=== PATIENT | male | born 1955 | race Asian ===

== ENCOUNTER 2020-06-01 02:42 | Emergency (ER) | payer MEDICAID, SELFPAY ==
[~2020-06-01] VITALS: Ht 165.1 cm; Wt 72.7 kg
[2020-06-01] MEDS ORDERED: LOSA100T50 PO (03:07)
[2020-06-01] MEDS ORDERED: TRUL0.5I SC (03:07)
[2020-06-01] MEDS ORDERED: JARD1TAB PO (03:07)
[2020-06-01] MEDS ORDERED: METF500T13 PO (03:07)
--- NOTE | 2020-06-01 04:58 | REPVR ---
PROCEDURE INFORMATION: Exam: CT Head Without Contrast Exam date and time: 06/01/2020 4:38 AM Age: 64 years old Clinical indication: Dizziness TECHNIQUE: Imaging protocol: Computed tomography of the head without contrast. Radiation optimization: All CT scans at this facility use at least one of these dose optimization techniques: automated exposure control; mA and/or kV adjustment per patient size (includes targeted exams where dose is matched to clinical indication); or iterative reconstruction. COMPARISON: No relevant prior studies available. FINDINGS: Brain: Normal. No hemorrhage. Unremarkable white matter. No mass effect. Cerebral ventricles: No ventriculomegaly. Bones/joints: Unremarkable. No acute fracture. Paranasal sinuses: Visualized sinuses are unremarkable. No fluid levels. Mastoid air cells: Visualized mastoid air cells are well aerated. Soft tissues: Unremarkable. IMPRESSION: No acute intracranial abnormality. Electronically signed by: Aaron Sim On 06/01/2020 04:58:37 AM
[2020-06-01 05:00] LABS: HEMATOCRIT 44.5 % (42.0-52.0); HEMOGLOBIN 15.3 g/dl (13.5-17.5); MEAN CORPUSCULAR HEMOGLOBIN 30.6 pg (27.0-33.0); MEAN CORPUSCULAR HGB CONC 34.4 g/dl (32.0-36.5); PLATELET COUNT, AUTOMATED 196 10^3/uL (150-450)
[2020-06-01 05:18] LABS: BLOOD UREA NITROGEN 17 MG/DL (7-18); CALCIUM LEVEL 8.8 MG/DL (8.8-10.2); CARBON DIOXIDE LEVEL 26 MEQ/L (21-32); CHLORIDE LEVEL 109 MEQ/L (98-107); GLOMERULAR FILTRATION RATE > 60.0 (>49); GLUCOSE, FASTING 114 MG/DL (70-100); POTASSIUM SERUM 3.8 MEQ/L (3.5-5.1); SODIUM LEVEL 141 MEQ/L (136-145)
[2020-06-01] MEDS ORDERED: MECLIZINE 25 MG TABLET PO ONE (05:30)
[2020-06-01 06:15] VITALS: BP 153/93
[2020-06-01] MEDS ORDERED: MECL1TAB31 PO (06:21)
== END 2020-06-01 06:34 | disposition home or self-care (01) ==
LOC: M ED 02:42
DX: R42 Dizziness and giddiness (principal); E11.9 Type 2 diabetes mellitus without complications; I10 Essential (primary) hypertension; Z79.84 Long term (current) use of oral hypoglycemic drugs; Z79.899 Other long term (current) drug therapy

== ENCOUNTER → 2020-09-02 | Outpatient (REF) | payer MEDICAID ==
[~2020-09-02] MED LIST: JARD1TAB PO; LOSA100T50 PO; MECL1TAB31 PO; METF500T13 PO; TRUL0.5I SC
[2020-09-02 19:07] LABS: BASO % 0.8 % (0.0-1.0); EOS # 0.1 10^3/uL (0.0-0.5); EOS % 1.9 % (0.0-3.0); HEMATOCRIT 46.8 % (42.0-52.0); HEMOGLOBIN 15.7 g/dl (13.5-17.5); LYMPH # 1.2 10^3/uL (1.5-5.0); LYMPH % 25.7 % (24.0-44.0); MEAN CORPUSCULAR HEMOGLOBIN 30.6 pg (27.0-33.0); MEAN CORPUSCULAR HGB CONC 33.5 g/dl (32.0-36.5); MEAN CORPUSCULAR VOLUME 91.2 fl (80.0-96.0); MONO # 0.4 10^3/uL (0.0-0.8); MONO % 7.9 % (2.0-8.0); NEUTROPHILS # 3.1 10^3/uL (1.5-8.5); NEUTROPHILS % 63.3 % (36.0-66.0); PLATELET COUNT, AUTOMATED 223 10^3/uL (150-450); RED BLOOD COUNT 5.13 10^6/uL (4.30-6.10); WHITE BLOOD COUNT 4.8 10^3/uL (4.0-10.0)
[2020-09-02 19:28] LABS: HEMOGLOBIN A1c 5.5 %
[2020-09-02 19:46] LABS: ALBUMIN 4.5 GM/DL (3.2-5.2); ALT/SGPT 49 U/L (12-78); BILIRUBIN,TOTAL 0.8 MG/DL (0.2-1.0); BLOOD UREA NITROGEN 15 MG/DL (7-18); CALCIUM LEVEL 9.1 MG/DL (8.8-10.2); CARBON DIOXIDE LEVEL 30 MEQ/L (21-32); CHLORIDE LEVEL 105 MEQ/L (98-107); CHOLESTEROL LEVEL 134 MG/DL (<200); CHOLESTEROL RISK RATIO 2.161 (<5); CREATININE FOR GFR 1.09 MG/DL (0.70-1.30); GLOMERULAR FILTRATION RATE > 60.0 (>49); GLUCOSE, FASTING 98 MG/DL (70-100); HDL CHOLESTEROL 62 MG/DL (>40); LDL CHOLESTEROL 58 MG/DL (<100); NON-HDL-C 72 MG/DL; POTASSIUM SERUM 4.6 MEQ/L (3.5-5.1); PROSTATIC SPECIFIC AG MONITOR 4.11 NG/ML (< 4.00); SODIUM LEVEL 140 MEQ/L (136-145); TOTAL 25(OH) VITAMIN D 38.6 NG/ML (30.0-100.0); TOTAL PROTEIN 7.7 GM/DL (6.4-8.2); TRIGLYCERIDES LEVEL 72 MG/DL (<150)
[2020-09-02 20:09] LABS: MALB URINE SIEMENS 52.5 MG/L; MAU/CREAT RATIO 25.1 MCG/MG (0.0-30.0)
== END ==
LOC: M LAB REF 15:51
PROVIDERS: ATTEND Physician Assistant
DX: E11.9 Type 2 diabetes mellitus without complications (principal); Z12.5 Encounter for screening for malignant neoplasm of prostate

== ENCOUNTER → 2020-11-15 | Outpatient (CLI) | payer MEDICAID | LOC: M LABSMTC 09:41 | PROVIDERS: ATTEND Anesthesiology | DX: Z01.812 Encounter for preprocedural laboratory examination (principal); Z20.822 Contact with and (suspected) exposure to COVID-19 ==

== ENCOUNTER 2020-11-20 06:44 | Day surgery (SDC) | payer MEDICAID ==
[~2020-11-20] VITALS: Ht 165.1 cm; Wt 65.8 kg
[~2020-11-20 06:44] MED LIST changes: +NS 1,000 ML IV ONE
[2020-11-20] MEDS ORDERED: LIDOCAINE 2% 100MG/5ML SDV (FOR ANES.) As Ordered ONE (07:22)
[2020-11-20] MEDS ORDERED: propofoL 200 MG/20 ML VIAL As Ordered ONE ×2 (07:22→07:45)
--- NOTE | 2020-11-20 08:19 | ROOR ---
Patient Name: Ritchie Mulligan Procedure Date: 11/20/2020 7:33 AM Date of : 1955 Age: 65 Room: [facility] Gender: Male Note Status: Finalized Procedure: Colonoscopy Indications: Screening for colon cancer: Family history of colorectal cancer in distant relative(s) 60 or older Providers: Justin Ansari MD Referring MD: Justin Ansari MD Requesting Provider: Medicines: Monitored Anesthesia Care Complications: No immediate complications. Procedure: Pre-Anesthesia Assessment: - Prior to the procedure, a History and Physical was performed, and patient medications and allergies were reviewed. The patient is competent. The risks and benefits of the procedure and the sedation options and risks were discussed with the patient. All questions were answered and informed consent was obtained. Patient identification and proposed procedure were verified by the physician, the nurse and the anesthesiologist in the endoscopy suite. Mental Status Examination: alert and oriented. Airway Examination: normal oropharyngeal airway and neck mobility. Respiratory Examination: clear to auscultation. CV Examination: normal. Prophylactic Antibiotics: The patient does not require prophylactic antibiotics. Prior Anticoagulants: The patient has taken no previous anticoagulant or antiplatelet agents. ASA Grade Assessment: II - A patient with mild systemic disease. After reviewing the risks and benefits, the patient was deemed in satisfactory condition to undergo the procedure. The anesthesia plan was to use monitored anesthesia care (MAC). Immediately prior to administration of medications, the patient was re-assessed for adequacy to receive sedatives. The heart rate, respiratory rate, oxygen saturations, blood pressure, adequacy of pulmonary ventilation, and response to care were monitored throughout the procedure. The physical status of the patient was re-assessed after the procedure. The Colonoscope was introduced through the anus and advanced to the terminal ileum, with identification of the appendiceal orifice and IC valve. The colonoscopy was performed without difficulty. The patient tolerated the procedure well. The quality of the bowel preparation was excellent. Findings: The perianal and digital rectal examinations were normal. A few small-mouthed diverticula were found in the sigmoid colon, descending colon, transverse colon and ascending colon. There was no evidence of diverticular bleeding. A diminutive polyp was found in the ascending colon. The polyp was flat. The polyp was removed with a cold biopsy forceps. Resection and retrieval were complete. Estimated blood loss was minimal. Two semi-pedunculated polyps were found in the sigmoid colon. The polyps were 4 to 6 mm in size. These polyps were removed with a cold snare. Resection and retrieval were complete. To prevent bleeding after the polypectomy, two hemostatic clips were successfully placed (MR conditional). There was no bleeding at the end of the procedure. The retroflexed view of the distal rectum and anal verge was normal and showed no anal or rectal abnormalities. Impression: - Mild diverticulosis in the sigmoid colon, in the descending colon, in the transverse colon and in the ascending colon. There was no evidence of diverticular bleeding. - One diminutive polyp in the ascending colon, removed with a cold biopsy forceps. Resected and retrieved. - Two 4 to 6 mm polyps in the sigmoid colon, removed with a cold snare. Resected and retrieved. Clips (MR conditional) were placed. - The distal rectum and anal verge are normal on retroflexion view. Recommendation: - Discharge patient to home (ambulatory). - High fiber diet indefinitely. - Repeat colonoscopy in 5 years for surveillance of multiple polyps. Procedure Code(s): --- Professional --- 67609, Colonoscopy, flexible; with removal of tumor(s), polyp(s), or other lesion(s) by snare technique 61165, 59, Colonoscopy, flexible; with biopsy, single or multiple Diagnosis Code(s): --- Professional --- K63.5, Polyp of colon Z12.11, Encounter for screening for malignant neoplasm of colon Z80.0, Family history of malignant neoplasm of digestive organs K57.30, Diverticulosis of large intestine without perforation or abscess without bleeding CPT copyright 2019 [employer]. All rights reserved. 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 Justin Ansari MD Justin Ansari MD 11/20/2020 8:19:48 AM Electronically signed by Justin Ansari MD Number of Addenda: 0 Note Initiated On: 11/20/2020 7:33 AM Estimated Blood Loss: Estimated blood loss was minimal.
[2020-11-20 08:38] VITALS: BP 118/83
== END 2020-11-20 09:05 | disposition home or self-care (01) ==
LOC: M OPP 06:44
PROVIDERS: ATTEND Surgery
DX: Z12.11 Encounter for screening for malignant neoplasm of colon (principal); Z80.0 Family history of malignant neoplasm of digestive organs; K63.5 Polyp of colon; K57.30 Diverticulosis of large intestine without perforation or abscess without bleeding; Z79.84 Long term (current) use of oral hypoglycemic drugs; Z79.899 Other long term (current) drug therapy

== ENCOUNTER 2020-11-29 18:32 | Emergency (ER) | payer MEDICAID ==
[~2020-11-29] VITALS: Ht 165.1 cm; Wt 64.4 kg
[~2020-11-29 18:32] MED LIST changes: -NS 1,000 ML IV ONE
[2020-11-29] MEDS ORDERED: ROSU10TA6 PO (18:39)
[2020-11-29] MEDS ORDERED: PENT400T47 PO (18:39)
[2020-11-29 19:38] LABS: BASO % 0.4 % (0.0-1.0); EOS # 0.2 10^3/uL (0.0-0.5); EOS % 2.6 % (0.0-3.0); HEMATOCRIT 44.5 % (42.0-52.0); HEMOGLOBIN 14.9 g/dl (13.5-17.5); LYMPH # 1.9 10^3/uL (1.5-5.0); LYMPH % 26.2 % (24.0-44.0); MEAN CORPUSCULAR HEMOGLOBIN 30.7 pg (27.0-33.0); MEAN CORPUSCULAR HGB CONC 33.5 g/dl (32.0-36.5); MEAN CORPUSCULAR VOLUME 91.6 fl (80.0-96.0); MONO # 0.6 10^3/uL (0.0-0.8); MONO % 8.4 % (2.0-8.0); NEUTROPHILS # 4.5 10^3/uL (1.5-8.5); NEUTROPHILS % 62.3 % (36.0-66.0); PLATELET COUNT, AUTOMATED 205 10^3/uL (150-450); RED BLOOD COUNT 4.86 10^6/uL (4.30-6.10); WHITE BLOOD COUNT 7.2 10^3/uL (4.0-10.0)
[2020-11-29 20:10] LABS: ALT/SGPT 35 U/L (12-78); BILIRUBIN,TOTAL 0.3 MG/DL (0.2-1.0); BLOOD UREA NITROGEN 17 MG/DL (7-18); CARBON DIOXIDE LEVEL 29 MEQ/L (21-32); CHLORIDE LEVEL 108 MEQ/L (98-107); CREATININE FOR GFR 0.93 MG/DL (0.70-1.30); GLOMERULAR FILTRATION RATE > 60.0 (>49); GLUCOSE, FASTING 138 MG/DL (70-100); POTASSIUM SERUM 3.9 MEQ/L (3.5-5.1); SODIUM LEVEL 142 MEQ/L (136-145); TOTAL PROTEIN 7.3 GM/DL (6.4-8.2)
[2020-11-29] MEDS ORDERED: NS 1,000 ML IV ONE (20:50)
[2020-11-29] MEDS ORDERED: MECLIZINE 25 MG TABLET PO ONE (20:50)
[2020-11-30] MEDS ORDERED: FLON1SPR NARES (01:28)
[2020-11-30] MEDS ORDERED: MECL1TAB31 PO (01:28)
[2020-11-30 01:30] VITALS: BP 135/80
--- NOTE | 2020-11-30 08:55 | ECGEPIP ---
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
--- NOTE | 2020-12-02 08:46 | REP ---
INDICATION: intractable dizziness. COMPARISON: None. TECHNIQUE: Axial and sagittal imaging planes are utilized for T1 and T2-weighted scans. Sequences include spin-echo, fast spin echo, FLAIR, and diffusion weighted sequences. FINDINGS: No bony calvarial lesion is seen. Craniocervical junction and upper cervical cord are normal in appearance. There is no MR evidence of significant paranasal sinus disease. No intraorbital abnormality is seen. The lateral, third, and fourth ventricles are normal in size and position. Kearns-white differentiation pattern is intact above and below the tentorium. There is no evidence of intracranial hemorrhage. No mass, infarction, extra-axial fluid collection or midline shift is seen. No abnormal white matter lesion is seen. IMPRESSION: Negative noncontrast brain MRI study. <Electronically signed by Ar Hook > 12/02/20 0815
--- NOTE | 2020-12-02 08:48 | REP ---
INDICATION: dizziness COMPARISON: 06/01/2020 TECHNIQUE: Axial noncontrast images from the skull base to the vertex with coronal reformations. This CT examination was performed using the following dose reduction techniques: Automated exposure control, adjustment of mA and/or kv according to the patient's size, and use of iterative reconstruction technique. FINDINGS: The ventricles, sulci, and cisterns are normal in position and appearance. Kearns-white differentiation is maintained. No acute intracranial hemorrhage, mass/mass effect, pathology or trauma/injury. No evidence for acute infarction. No extra-axial fluid collection. Calvarium is intact. Paranasal sinuses and mastoid air cells are clear. IMPRESSION: Normal noncontrast head CT. No evidence for acute intracranial pathology or trauma/injury. <Electronically signed by Ar Hook > 12/02/20 0814
--- NOTE | 2020-12-02 08:48 | REP ---
INDICATION: intractable dizziness COMPARISON: None. TECHNIQUE: Axial noncontrast 3-D [id number] source images with multiplanar MIP reformations. FINDINGS: Visualized portions of the bilateral internal carotid arteries appear relatively symmetric and normal. Very minimal atherosclerotic changes involving the cavernous portions cannot definitively be excluded. However, no significant occlusion or stenosis identified. There is symmetric appearance to the intracranial vasculature and cheesh-na of Be, which appears relatively normal. The visualized portions of the vertebrobasilar system appear intact. There is no evidence for arteriovenous malformation, aneurysm, or significant loss of vascular signal to suggest areas of decreased vascular supply. IMPRESSION: No evidence for stenosis or occlusion. No evidence for aneurysm, AVM, or significant further pathology. Intracranial vasculature appears relatively symmetric. <Electronically signed by Ar Hook > 12/02/20 [id number]
== END 2020-11-30 01:41 | disposition home or self-care (01) ==
LOC: M ED 18:32
DX: R42 Dizziness and giddiness (principal); I10 Essential (primary) hypertension; E78.5 Hyperlipidemia, unspecified; Z79.84 Long term (current) use of oral hypoglycemic drugs; Z79.899 Other long term (current) drug therapy

== ENCOUNTER → 2021-04-01 | Outpatient (CLI) | payer MEDICAID ==
[~2021-04-01] MED LIST changes: +FLON1SPR NARES; +PENT400T47 PO; +ROSU10TA6 PO
--- NOTE | 2021-04-01 10:37 | REP ---
INDICATION: CIRCULATORY COMPLICATIONS, DIABETES COMPARISON: None. TECHNIQUE: Real-time ultrasound evaluation and duplex Doppler interrogation of the extracranial carotid vasculature is performed. FINDINGS: Antegrade flow is observed in both vertebral arteries. Right carotid: The right common carotid artery shows diffuse intimal thickening but is otherwise unremarkable. There isminimal soft plaquing in the right carotid bulb and proximal ICA on two-dimensional scanning. Color flow and spectral Doppler interrogation are unremarkable on the right. Velocity chart right carotid: Right CCA PSV: 86 cm/S Right ICA PSV: 75 cm/S Right ICA EDV: 27 cm/S Right ECA PSV: 83 cm/S Right ICA/CCA ratio: 0.87 Left carotid: The left common carotid artery shows diffuse intimal thickening but is otherwise unremarkable. There is minimal soft plaquing in the left carotid bulb and proximal ICA on two-dimensional scanning. Color flow and spectral Doppler interrogation are unremarkable on the left. Velocity chart left carotid: Left CCA PSV: 116 cm/S Left ICA PSV: 66 cm/S Left ICA EDV: 23 cm/S Left ECA PSV: 66 cm/S Left ICA/CCA ratio: 0.57 IMPRESSION: Less than 50% category narrowing in the right internal carotid artery by Doppler velocity criteria. Less than 50% category narrowing in the left ICA by Doppler velocity criteria. <Electronically signed by Porfirio Cordero > 04/01/21 [id number]
== END ==
LOC: M RAD 10:03
PROVIDERS: ATTEND Pediatrics
DX: E11.59 Type 2 diabetes mellitus with other circulatory complications (principal); I65.23 Occlusion and stenosis of bilateral carotid arteries

== ENCOUNTER → 2021-08-06 | Outpatient (CLI) | payer MEDICAID ==
[~2021-08-06] MED LIST changes: +LOSA100T45 PO; -LOSA100T50 PO
== END ==
LOC: M RAD 07:52
PROVIDERS: ATTEND Pediatrics
DX: R93.89 Abnormal findings on diagnostic imaging of other specified body structures (principal)

== ENCOUNTER → 2021-08-11 | Outpatient (CLI) | payer MEDICAID | LOC: M LAB 15:31 | PROVIDERS: ATTEND Urology | DX: R97.20 Elevated prostate specific antigen [PSA] (principal) ==

== ENCOUNTER → 2021-12-23 | Outpatient (CLI) | payer MEDICAID ==
[2021-12-23 17:44] LABS: BASO % 0.6 % (0.0-1.0); EOS # 0.1 10^3/uL (0.0-0.5); EOS % 1.3 % (0.0-3.0); HEMATOCRIT 43.2 % (42.0-52.0); HEMOGLOBIN 14.8 g/dl (13.5-17.5); LYMPH # 1.7 10^3/uL (1.5-5.0); LYMPH % 26.3 % (24.0-44.0); MEAN CORPUSCULAR HGB CONC 34.3 g/dl (32.0-36.5); MEAN CORPUSCULAR VOLUME 90.6 fl (80.0-96.0); MONO # 0.6 10^3/uL (0.0-0.8); MONO % 8.8 % (2.0-8.0); NEUTROPHILS % 62.8 % (36.0-66.0); PLATELET COUNT, AUTOMATED 203 10^3/uL (150-450); RED BLOOD COUNT 4.77 10^6/uL (4.30-6.10); WHITE BLOOD COUNT 6.4 10^3/uL (4.0-10.0)
[2021-12-23 18:02] LABS: BLOOD UREA NITROGEN 15 MG/DL (7-18); CALCIUM LEVEL 9.5 MG/DL (8.8-10.2); CARBON DIOXIDE LEVEL 26 MEQ/L (21-32); CHLORIDE LEVEL 107 MEQ/L (98-107); CREATININE FOR GFR 1.16 MG/DL (0.70-1.30); GLOMERULAR FILTRATION RATE > 60.0 (>49); GLUCOSE, FASTING 105 MG/DL (70-100); POTASSIUM SERUM 3.9 MEQ/L (3.5-5.1); SODIUM LEVEL 142 MEQ/L (136-145)
[2021-12-23 18:15] LABS: ERYTHROCYTE SEDIMENTATION RATE 4 mm/hr (0-20)
== END ==
LOC: M RAD 16:39
PROVIDERS: ATTEND Nurse Practitioner Family
DX: M95.8 Other specified acquired deformities of musculoskeletal system (principal); R22.2 Localized swelling, mass and lump, trunk

== ENCOUNTER → 2022-01-19 | Outpatient (CLI) | payer MEDICAID | LOC: M RAD 16:25 | PROVIDERS: ATTEND Nurse Practitioner Family | DX: M89.38 Hypertrophy of bone, other site (principal); R22.2 Localized swelling, mass and lump, trunk ==

== ENCOUNTER → 2022-02-27 | Outpatient (CLI) | payer MEDICAID | LOC: M RAD 13:44 | PROVIDERS: ATTEND Nurse Practitioner Family | DX: M95.8 Other specified acquired deformities of musculoskeletal system (principal) ==

== ENCOUNTER → 2022-05-08 | Outpatient (REF) | payer MEDICAID | LOC: M SFHCDERM 14:22 | PROVIDERS: ATTEND Nurse Practitioner Family | DX: L82.1 Other seborrheic keratosis (principal) ==